=== PATIENT | male | born 1980 | race Asian ===

== ENCOUNTER 2017-07-31 23:47 | Emergency (ER) | payer OTHER ==
[~2017-07-31] VITALS: Ht 167.6 cm; Wt 108.0 kg
[2017-08-01 00:47] LABS: ANION GAP 12 mmol/L (8-16); CALCIUM, TOTAL 9.1 mg/dL (8.8-10.5); CARBON DIOXIDE 25 mmol/L (22-29); CHLORIDE 103 mmol/L (98-107); CREATININE 1.26 mg/dL (0.60-1.30); GLOMERULAR FILTR. RATE CALC > 60 mL/min (>60); GLUCOSE,RANDOM 142 mg/dL (70-110); POTASSIUM 3.2 mmol/L (3.5-5.1); SODIUM SERUM 140 mmol/L (136-145); UREA NITROGEN, BLOOD 13 mg/dL (7-18)
[2017-08-01 00:52] LABS: ALANINE AMINOTRANSFERASE 106 U/L (12-78); ALBUMIN 3.9 g/dL (3.4-5.0); ALKALINE PHOSPHATASE 68 U/L (46-116); ASPARTATE AMINOTRANSFERASE 79 U/L (15-37); BILIRUBIN,TOTAL 0.4 mg/dL (0.1-1.0); TOTAL PROTEIN, SERUM 7.8 g/dL (6.4-8.2)
[2017-08-01 01:09] LABS: BASOPHILS % (AUTO) 0.2 % (0.0-2.0); EOSINOPHILS % (AUTO) 0.1 % (1.0-6.0); HEMATOCRIT 40.7 % (41-53); HEMOGLOBIN 14.2 g/dL (13.5-17.5); LYMPHOCYTES # (AUTO) 1.2 K/uL (1.0-4.8); LYMPHOCYTES % (AUTO) 10.7 % (22.0-44.0); MEAN CORPUSCULAR HEMOGLOBIN 29.2 pg (26.0-34.0); MEAN CORPUSCULAR HGB CONC 34.7 G/dL (31.0-37.0); MEAN CORPUSCULAR VOLUME 84 fL (80-100); MONOCYTES # (AUTO) 0.7 K/uL (0.1-1.0); MONOCYTES % (AUTO) 6.2 % (2.0-9.0); NEUTROPHILS # (AUTO) 9.6 K/uL (1.8-7.7); NEUTROPHILS % (AUTO) 82.8 % (40.0-70.0); PLATELET COUNT (AUTO) 297 K/uL (150-450); RED BLOOD CELL COUNT(AUTO) 4.85 MIL/uL (4.50-5.90); RED CELL DISTRIBUTION WIDTH 12.8 % (11.5-14.5)
[2017-08-01] MEDS ORDERED: DiphenhydrAMINE HCL 50 MG/ML VIAL IM ONE (01:15)
[2017-08-01] MEDS ORDERED: HALOPERIDOL LACTATE 5 MG/ML VIAL IM ONE (01:15)
[2017-08-01] MEDS ORDERED: LORazepam 2 MG/ML VIAL IM ONE (01:15)
[2017-08-01 04:13] LABS: AMPHET/METH SCREEN,URINE NEGATIVE (NEGATIVE); BARBITURATE SCREEN, URINE NEGATIVE (NEGATIVE); BENZODIAZEPINES SCREEN,URINE NEGATIVE (NEGATIVE); CANNABINOID SCREEN,URINE NEGATIVE (NEGATIVE); COCAINE SCREEN,URINE NEGATIVE (NEGATIVE); METHADONE SCREEN, URINE NEGATIVE (NEGATIVE); OPIATE SCREEN,URINE NEGATIVE (NEGATIVE)
[2017-08-01 04:18] LABS: PHENCYCLIDINE SCREEN,URINE NEGATIVE (NEGATIVE)
[2017-08-01 06:32] VITALS: BP 109/67
== END 2017-08-01 07:14 | disposition other institution (70) ==
LOC: EMS 23:48
DX: F29 Unspecified psychosis not due to a substance or known physiological condition (principal); Z88.8 Allergy status to other drugs, medicaments and biological substances
CPT/HCPCS: 36415; 51701; 80053; 80307; 85025; 96372; 99285; G0480; J1200; J1630; J2060

== ENCOUNTER 2021-10-01 19:26 | Emergency (ER) | payer MEDICAID, OTHER ==
[~2021-10-01] VITALS: Ht 167.6 cm; Wt 81.8 kg
[~2021-10-01 19:26] MED LIST: LURA60TA PO
[2021-10-01] MEDS ORDERED: DiphenhydrAMINE HCL 50 MG CAPSULE PO ONE (20:00)
[2021-10-01] MEDS ORDERED: LORazepam 2 MG TABLET PO ONE (20:00)
[2021-10-01] MEDS ORDERED: HALOPERIDOL 5 MG TABLET PO ONE (20:00)
[2021-10-01 20:18] LABS: COVID AG,FIA SOURCE NASOPHARYNGEAL
[2021-10-01 20:29] LABS: BASOPHILS % (AUTO) 0.1 % (0.0-2.0); EOSINOPHILS % (AUTO) 0 % (1.0-6.0); HEMATOCRIT 41.2 % (41-53); HEMOGLOBIN 13.9 g/dL (13.5-17.5); LYMPHOCYTES # (AUTO) 1.2 K/uL (1.0-4.8); LYMPHOCYTES % (AUTO) 8.7 % (22.0-44.0); MEAN CORPUSCULAR HEMOGLOBIN 28.7 pg (26.0-34.0); MEAN CORPUSCULAR HGB CONC 33.6 G/dL (31.0-37.0); MEAN CORPUSCULAR VOLUME 85 fL (80-100); MONOCYTES # (AUTO) 1.1 K/uL (0.1-1.0); MONOCYTES % (AUTO) 7.6 % (2.0-9.0); NEUTROPHILS # (AUTO) 11.8 K/uL (1.8-7.7); NEUTROPHILS % (AUTO) 83.6 % (40.0-70.0); PLATELET COUNT (AUTO) 293 K/uL (150-450); RED BLOOD CELL COUNT(AUTO) 4.83 MIL/uL (4.50-5.90); RED CELL DISTRIBUTION WIDTH 13.8 % (11.5-14.5)
[2021-10-01 20:38] LABS: ANION GAP 15 mmol/L (8-16); CALCIUM, TOTAL 9.3 mg/dL (8.8-10.5); CARBON DIOXIDE 22 mmol/L (22-29); CHLORIDE 100 mmol/L (98-107); CREATININE 1.41 mg/dL (0.60-1.30); GLOMERULAR FILTR. RATE CALC 55 mL/min (>60); GLUCOSE,RANDOM 232 mg/dL (70-110); POTASSIUM 3.3 mmol/L (3.5-5.1); SODIUM SERUM 137 mmol/L (136-145); UREA NITROGEN, BLOOD 13 mg/dL (7-18)
[2021-10-01 20:53] LABS: ALANINE AMINOTRANSFERASE 99 U/L (12-78); ALBUMIN 3.9 g/dL (3.4-5.0); ALKALINE PHOSPHATASE 70 U/L (46-116); ASPARTATE AMINOTRANSFERASE 47 U/L (15-37); BILIRUBIN,TOTAL 0.8 mg/dL (0.1-1.0); THYROID STIMULATING HORMONE 0.33 uIU/mL (0.36-3.74); TOTAL PROTEIN, SERUM 7.6 g/dL (6.4-8.2)
[2021-10-01] MEDS ORDERED: POTASSIUM CHLORIDE 20 MEQ ER TABLET PO ONE (21:00)
[2021-10-01 21:31] LABS: AMPHET/METH SCREEN,URINE NEGATIVE (NEGATIVE); BARBITURATE SCREEN, URINE NEGATIVE (NEGATIVE); BENZODIAZEPINES SCREEN,URINE NEGATIVE (NEGATIVE); CANNABINOID SCREEN,URINE POSITIVE (NEGATIVE); COCAINE SCREEN,URINE NEGATIVE (NEGATIVE); METHADONE SCREEN, URINE NEGATIVE (NEGATIVE); OPIATE SCREEN,URINE NEGATIVE (NEGATIVE)
[2021-10-01 21:56] LABS: PHENCYCLIDINE SCREEN,URINE NEGATIVE (NEGATIVE)
[2021-10-01 22:55] VITALS: BP 148/92
== END 2021-10-01 23:09 | disposition home or self-care (01) ==
LOC: EMS 19:26
DX: F25.0 Schizoaffective disorder, bipolar type (principal); F12.10 Cannabis abuse, uncomplicated; Z88.8 Allergy status to other drugs, medicaments and biological substances; Z79.899 Other long term (current) drug therapy; Z20.822 Contact with and (suspected) exposure to COVID-19
CPT/HCPCS: 99284; 87426; 80053; 84443; 85025; 36415; 80307; G0480

== ENCOUNTER 2022-05-16 19:38 | Inpatient (IN) | payer MEDICAID, OTHER ==
[~2022-05-16] VITALS: Ht 167.6 cm; Wt 81.7 kg
[2022-05-16 20:25] LABS: BASOPHILS % (AUTO) 0.2 % (0.0-2.0); EOSINOPHILS % (AUTO) 0 % (1.0-6.0); HEMATOCRIT 41.7 % (41-53); HEMOGLOBIN 14.1 g/dL (13.5-17.5); LYMPHOCYTES # (AUTO) 1.2 K/uL (1.0-4.8); MEAN CORPUSCULAR HEMOGLOBIN 29.2 pg (26.0-34.0); MEAN CORPUSCULAR HGB CONC 33.8 G/dL (31.0-37.0); MEAN CORPUSCULAR VOLUME 87 fL (80-100); MONOCYTES # (AUTO) 0.6 K/uL (0.1-1.0); MONOCYTES % (AUTO) 4.6 % (2.0-9.0); NEUTROPHILS # (AUTO) 11.8 K/uL (1.8-7.7); PLATELET COUNT (AUTO) 277 K/uL (150-450); RED BLOOD CELL COUNT(AUTO) 4.82 MIL/uL (4.50-5.90); RED CELL DISTRIBUTION WIDTH 13.6 % (11.5-14.5)
[2022-05-16 20:26] LABS: NEUTROPHILS % (AUTO) 86.2 % (40.0-70.0)
[2022-05-16 20:36] LABS: CARBON DIOXIDE 21 mmol/L (22-29); CHLORIDE 97 mmol/L (98-107); POTASSIUM 3.3 mmol/L (3.5-5.1); SODIUM SERUM 135 mmol/L (136-145)
[2022-05-16 20:37] LABS: ANION GAP 17 mmol/L (8-16); CALCIUM, TOTAL 9.4 mg/dL (8.8-10.5); CREATININE 1.09 mg/dL (0.60-1.30); GLOMERULAR FILTR. RATE CALC > 60 mL/min (>60); GLUCOSE,RANDOM 209 mg/dL (70-110); PLATELET MORPHOLOGY COMMENT LARGE PLTS PRESENT; UREA NITROGEN, BLOOD 18 mg/dL (7-18)
[2022-05-16 20:42] LABS: ALANINE AMINOTRANSFERASE 115 U/L (12-78); ALBUMIN 4.8 g/dL (3.4-5.0); ALKALINE PHOSPHATASE 74 U/L (46-116); ASPARTATE AMINOTRANSFERASE 60 U/L (15-37); BILIRUBIN,TOTAL 1.1 mg/dL (0.1-1.0); TOTAL PROTEIN, SERUM 8.2 g/dL (6.4-8.2)
[2022-05-16 21:53] LABS: AMPHET/METH SCREEN,URINE NEGATIVE (NEGATIVE); BARBITURATE SCREEN, URINE NEGATIVE (NEGATIVE); BENZODIAZEPINES SCREEN,URINE NEGATIVE (NEGATIVE); CANNABINOID SCREEN,URINE NEGATIVE (NEGATIVE); COCAINE SCREEN,URINE NEGATIVE (NEGATIVE); METHADONE SCREEN, URINE NEGATIVE (NEGATIVE); OPIATE SCREEN,URINE NEGATIVE (NEGATIVE); PHENCYCLIDINE SCREEN,URINE NEGATIVE (NEGATIVE)
[2022-05-16 23:34] LABS: COVID AG,FIA SOURCE NASOPHARYNGEAL
[2022-05-17] MEDS ORDERED: HALOPERIDOL 5 MG TABLET PO PRN (08:45)
[2022-05-17] MEDS ORDERED: PETROLATUM,WHITE 28 GM JELLY TP PRN (17:30)
[2022-05-17] MEDS ORDERED: BACITRACIN 28 GM OINTMENT TP PRN (17:30)
[2022-05-17] MEDS ORDERED: ACETAMINOPHEN 325 MG TABLET PO PRN (17:30)
[2022-05-17] MEDS ORDERED: CloNIDine HCL 0.1 MG TABLET PO PRN (17:30)
[2022-05-17] MEDS ORDERED: OMEPRAZOLE 20 MG CAPSULE PO PRN (17:30)
[2022-05-17] MEDS ORDERED: DOCUSATE SODIUM 100 MG CAPSULE PO PRN (17:30)
[2022-05-17] MEDS ORDERED: POTASSIUM CHLORIDE 20 MEQ ER TABLET PO ONE (17:30)
[2022-05-17] MEDS ORDERED: LOPERAMIDE HCL 2 MG CAPSULE PO PRN (17:30)
[2022-05-17] MEDS ORDERED: ALBUTEROL SULFATE HFA 90 MCG/PUFF 8 GM INHALER IH PRN (17:30)
[2022-05-17] MEDS ORDERED: BENZOCAINE/MENTHOL LOZENGE PO PRN (17:30)
[2022-05-17] MEDS ORDERED: IBUPROFEN 600 MG TABLET PO PRN (17:30)
[2022-05-17] MEDS ORDERED: MAG HYDROX/AL HYDROX/SIMETH ES 30 ML SUSPENSION UDCUP PO PRN (17:30)
[2022-05-17] MEDS ORDERED: ONDANSETRON HCL 4 MG TABLET PO PRN (17:30)
[2022-05-17] MEDS ORDERED: MAGNESIUM HYDROXIDE SUSPENSION 30 ML UDCUP PO PRN (17:30)
[2022-05-17 20:08] VITALS: BP 129/79
[2022-05-17] MEDS: LORazepam 2 MG TABLET PO PRN (21:29)
[2022-05-17] MEDS: ZOLPIDEM TARTRATE 10 MG TABLET PO PRN (21:29)
[2022-05-18 08:18] VITALS: BP 147/83
[2022-05-18 20:00] VITALS: BP 138/75
[2022-05-18] MEDS: ZOLPIDEM TARTRATE 10 MG TABLET PO PRN (22:05)
[2022-05-18 22:30] VITALS: BP 130/75
[2022-05-19] MEDS: LORazepam 2 MG TABLET PO PRN (03:35)
[2022-05-19 08:02] VITALS: BP 140/97
[2022-05-19 20:09] VITALS: BP 143/90
[2022-05-19] MEDS: ZOLPIDEM TARTRATE 10 MG TABLET PO PRN (22:54)
[2022-05-20 07:47] LABS: HEMOGLOBIN A1C 7.5 % (3.8-5.6)
[2022-05-20 08:02] LABS: ALANINE AMINOTRANSFERASE 113 U/L (12-78); ALKALINE PHOSPHATASE 64 U/L (46-116); ANION GAP 11 mmol/L (8-16); ASPARTATE AMINOTRANSFERASE 53 U/L (15-37); BILIRUBIN,TOTAL 0.5 mg/dL (0.1-1.0); CALCIUM, TOTAL 9.6 mg/dL (8.8-10.5); CARBON DIOXIDE 28 mmol/L (22-29); CHLORIDE 100 mmol/L (98-107); CHOL/HDL RATIO 4.8 (4.2-7.3); CHOLESTEROL 227 mg/dL (131-200); FREE T4 (FREE THYROXINE) 1.36 ng/dL (0.76-1.46); GLOMERULAR FILTR. RATE CALC > 60 mL/min (>60); GLUCOSE,RANDOM 206 mg/dL (70-110); HDL CHOLESTEROL 47 mg/dL (40-60); LDL CHOL (CALC.) 142 mg/dL (0-130); POTASSIUM 3.8 mmol/L (3.5-5.1); SODIUM SERUM 139 mmol/L (136-145); THYROID STIMULATING HORMONE 0.62 uIU/mL (0.36-3.74); TOTAL PROTEIN, SERUM 7.7 g/dL (6.4-8.2); TRIGLYCERIDES 189 mg/dL (15-150); UREA NITROGEN, BLOOD 12 mg/dL (7-18)
[2022-05-20 08:34] VITALS: BP 150/95
[2022-05-22 03:06] LABS: HEPATITIS C AB (EIA) Non Reactive (Non Reactive)
== END 2022-05-20 13:01 | disposition home or self-care (01) | DRG 750 ==
LOC: EMS 19:40 → B3A 05-17 05:00 → B2X 05-19 00:20 → B2S 05-20 05:15
PROVIDERS: ADMIT Psychiatry & Neurology Psychiatry; ATTEND Psychiatry & Neurology Psychiatry
DX: F20.9 Schizophrenia, unspecified (principal); E87.1 Hypo-osmolality and hyponatremia; F31.9 Bipolar disorder, unspecified; F41.9 Anxiety disorder, unspecified; G47.00 Insomnia, unspecified; I10 Essential (primary) hypertension; K59.00 Constipation, unspecified; E87.6 Hypokalemia; Z20.822 Contact with and (suspected) exposure to COVID-19; R73.9 Hyperglycemia, unspecified; Z79.899 Other long term (current) drug therapy
CPT/HCPCS: 80053; 80061; 80074; 80307; 83036; 84436; 84439; 84443; 85025; 99285; G0480

== ENCOUNTER 2024-03-11 00:05 | Inpatient (IN) | payer MEDICAID, OTHER ==
[~2024-03-11] VITALS: Ht 167.6 cm; Wt 90.9 kg
[2024-03-11] MEDS: HALOPERIDOL LACTATE 5 MG/ML VIAL IM ONE (00:39)
[2024-03-11] MEDS: LORazepam 2 MG/ML VIAL IM ONE (00:39)
[2024-03-11] MEDS: DiphenhydrAMINE HCL 50 MG/ML VIAL IM ONE (00:39)
[2024-03-11 04:50] LABS: COVID AG,FIA SOURCE NASAL SWAB
[2024-03-11 05:12] LABS: SARS-COV2 (COVID) ANTIGEN,FIA Negative (Negative)
[2024-03-11 06:07] LABS: ANION GAP 10 mmol/L (8-16); CALCIUM, TOTAL 8.6 mg/dL (8.8-10.5); CARBON DIOXIDE 28 mmol/L (22-29); CHLORIDE 102 mmol/L (98-107); CREATININE 1.07 mg/dL (0.60-1.30); GLOMERULAR FILTR. RATE CALC > 60 mL/min (>60); GLUCOSE,RANDOM 118 mg/dL (70-110); POTASSIUM 3.7 mmol/L (3.5-5.1); SODIUM SERUM 140 mmol/L (136-145); UREA NITROGEN, BLOOD 11 mg/dL (7-18)
[2024-03-11 06:18] VITALS: O2SAT 98
[2024-03-11 06:21] LABS: ALCOHOL, BLOOD (SERUM) < 3 mg/dL (0-10)
[2024-03-11 06:28] LABS: BASOPHILS % (AUTO) 0.6 % (0.0-2.0); EOSINOPHILS % (AUTO) 2.1 % (1.0-6.0); HEMATOCRIT 41.7 % (41-53); HEMOGLOBIN 13.7 g/dL (13.5-17.5); LYMPHOCYTES # (AUTO) 1.9 K/uL (1.0-4.8); LYMPHOCYTES % (AUTO) 25.1 % (22.0-44.0); MEAN CORPUSCULAR HEMOGLOBIN 28.5 pg (26.0-34.0); MEAN CORPUSCULAR HGB CONC 32.8 G/dL (31.0-37.0); MEAN CORPUSCULAR VOLUME 87 fL (80-100); MONOCYTES # (AUTO) 0.8 K/uL (0.1-1.0); MONOCYTES % (AUTO) 10.4 % (2.0-9.0); NEUTROPHILS # (AUTO) 4.6 K/uL (1.8-7.7); NEUTROPHILS % (AUTO) 61.8 % (40.0-70.0); PLATELET COUNT (AUTO) 256 K/uL (150-450); RED CELL DISTRIBUTION WIDTH 13.1 % (11.5-14.5); WHITE BLOOD COUNT (AUTO) 7.4 K/uL (4.5-11.0)
[2024-03-11] MEDS ORDERED: HALOPERIDOL 5 MG TABLET PO PRN (08:00)
[2024-03-11 09:19] VITALS: BP 128/89; PULSE 70; RESP 17; TEMP 97; O2SAT 100
[2024-03-11] MEDS ORDERED: PARO-37 PO (11:03)
[2024-03-11] MEDS ORDERED: OLAN10TA74 PO (11:03)
[2024-03-11] MEDS ORDERED: AMLO5TAB66 PO (11:03)
[2024-03-11] MEDS ORDERED: PRAV10TA39 PO (11:03)
[2024-03-11] MEDS ORDERED: INFLUENZA VIRUS VACCINE TVS (6MO+) 2024-25/PF 45 MCG/0.5 ML SYRINGE IM. ONE (11:15)
[2024-03-11 20:20] VITALS: BP 134/85; PULSE 87; RESP 16; TEMP 97.3; O2SAT 100
[2024-03-11] MEDS: PARoxetine HCL 20 MG TABLET PO SCH (20:27)
[2024-03-11] MEDS: OLANZapine 10 MG TABLET PO SCH (20:27)
[2024-03-12 08:27] VITALS: BP 118/89; PULSE 99; RESP 17; TEMP 98.3; O2SAT 98
[2024-03-12] MEDS: PRAVASTATIN SODIUM 10 MG TABLET PO SCH (09:45)
[2024-03-12] MEDS: AmLODIPine BESYLATE 5 MG TABLET PO SCH (09:48)
[2024-03-12] MEDS ORDERED: CloNIDine HCL 0.1 MG TABLET PO PRN (10:45)
[2024-03-12] MEDS ORDERED: OMEPRAZOLE 20 MG CAPSULE PO PRN (10:45)
[2024-03-12] MEDS ORDERED: ACETAMINOPHEN 325 MG TABLET PO PRN (10:45)
[2024-03-12] MEDS ORDERED: PETROLATUM,WHITE 28 GM JELLY TP PRN (10:45)
[2024-03-12] MEDS ORDERED: MAGNESIUM HYDROXIDE SUSPENSION 30 ML UDCUP PO PRN (10:45)
[2024-03-12] MEDS ORDERED: ONDANSETRON 4 MG TABLET PO PRN (10:45)
[2024-03-12] MEDS ORDERED: BENZOCAINE/MENTHOL LOZENGE PO PRN (10:45)
[2024-03-12] MEDS ORDERED: BACITRACIN 28 GM OINTMENT TP PRN (10:45)
[2024-03-12] MEDS ORDERED: LOPERAMIDE HCL 2 MG CAPSULE PO PRN (10:45)
[2024-03-12] MEDS ORDERED: ALBUTEROL SULFATE HFA 90 MCG/PUFF 8 GM INHALER IH PRN (10:45)
[2024-03-12] MEDS ORDERED: DOCUSATE SODIUM 100 MG CAPSULE PO PRN (10:45)
[2024-03-12 14:19] VITALS: RESP 17
[2024-03-12] MEDS: IBUPROFEN 600 MG TABLET PO PRN (14:19)
[2024-03-12 15:07] VITALS: RESP 17
[2024-03-12] MEDS: MAG HYDROX/ALUMINUM HYD/SIMETH ES 30 ML SUSPENSION UDCUP PO PRN (17:30)
[2024-03-12] MEDS: LORazepam 2 MG TABLET PO PRN (18:35)
[2024-03-12 20:00] VITALS: BP 121/79; PULSE 91; RESP 16; TEMP 97.6; O2SAT 96
[2024-03-12] MEDS: ZOLPIDEM TARTRATE 10 MG TABLET PO PRN (20:31)
[2024-03-13 09:30] VITALS: BP 135/94; PULSE 100; RESP 18; TEMP 97.7; O2SAT 94
[2024-03-13] MEDS ORDERED: OLAN10TA74 PO (12:45)
[2024-03-13] MEDS ORDERED: AMLO-257 PO (12:45)
[2024-03-13] MEDS ORDERED: PRAV10TA39 PO (12:45)
[2024-03-13] MEDS ORDERED: PARO-37 PO (12:45)
== END 2024-03-13 17:41 | disposition home or self-care (01) | DRG 750 ==
LOC: EMS 00:05 → B3A 07:50
PROVIDERS: ADMIT Psychiatry & Neurology Child & Adolescent Psychiatry; ATTEND Psychiatry & Neurology Child & Adolescent Psychiatry
PROC: GZ56ZZZ Individual Psychotherapy, Supportive (ICD-10-PCS; principal; 2024-03-11)
DX: F20.0 Paranoid schizophrenia (principal); R45.850 Homicidal ideations; Z20.822 Contact with and (suspected) exposure to COVID-19; F31.9 Bipolar disorder, unspecified; Z79.899 Other long term (current) drug therapy; I10 Essential (primary) hypertension; R73.9 Hyperglycemia, unspecified; E78.5 Hyperlipidemia, unspecified; F10.10 Alcohol abuse, uncomplicated; F19.10 Other psychoactive substance abuse, uncomplicated
CPT/HCPCS: 80048; 80061; 83036; 85025; 99285; G0480